=== PATIENT | female | born 2000 | race Caucasian/White ===

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

== ENCOUNTER 2018-12-22 11:51 | Outpatient (CLI) | payer OTHER ==
[2018-12-22 13:04] LABS: ALBUMIN 4.1 g/dL (3.4-5.0); ANION GAP 11.3 (8-16); CARBON DIOXIDE 28.7 mmol/L (21-32); CREATININE 0.7 mg/dL (0.6-1.3); TOTAL BILIRUBIN 1.1 mg/dL (0.0-1.0)
[2018-12-22 13:05] LABS: FREE T4 (FREE THYROXINE) 1.03 ng/dL (0.76-1.46); THYROID STIMULATING HORMONE 1.03 uIU/mL (0.34-3.74)
== END 2018-12-22 21:24 | disposition home or self-care (01) ==
LOC: MLB 11:51
DX: Z00.01 Encounter for general adult medical examination with abnormal findings (principal); E04.2 Nontoxic multinodular goiter; E83.39 Other disorders of phosphorus metabolism
CPT/HCPCS: 36415; 80053; 82306; 83036; 84439; 84443; 86376

== ENCOUNTER → 2020-02-21 | Day surgery (SDC) | payer OTHER | END | disposition home or self-care (01) | LOC: MRD 11:17 | DX: M54.9 Dorsalgia, unspecified (principal) | CPT/HCPCS: 72110 ==